=== PATIENT | female | born 1995 | race Caucasian/White ===

== ENCOUNTER 2021-06-17 18:01 | Emergency (ER) | payer SELFPAY ==
[~2021-06-17] VITALS: Ht 160 cm; Wt 56.7 kg
[2021-06-17 19:51] VITALS: BP 118/76
== END 2021-06-17 20:28 | disposition home or self-care (01) ==
LOC: ER 18:30
DX: S90.31XA Contusion of right foot, initial encounter (principal); W20.8XXA Other cause of strike by thrown, projected or falling object, initial encounter; Y92.008 Other place in unspecified non-institutional (private) residence as the place of occurrence of the external cause
CPT/HCPCS: 99283